=== PATIENT | female | born 1975 | race Caucasian/White ===

== ENCOUNTER 2022-07-16 14:05 | Emergency (ER) | payer OTHER ==
[~2022-07-16] VITALS: Ht 153 cm; Wt 68.2 kg
[~2022-07-16 14:05] MED LIST: ALBU8.5H3 IH; ALPR-709 PO; CARI-493 PO; DIVA-111 PO; PARO-38 PO; ZOLP10TA8 PO
[2022-07-16] MEDS ORDERED: ACETAMINOPHEN 500 MG TABLET PO ONE (15:00)
[2022-07-16 15:04] LABS: BASOPHILS % (AUTO) 0.1 % (0.0-2.0); EOSINOPHILS % (AUTO) 4.5 % (1.0-6.0); HEMOGLOBIN 9.8 g/dL (12.0-16.0); LYMPHOCYTES # (AUTO) 3.4 K/uL (1.0-4.8); LYMPHOCYTES % (AUTO) 47.2 % (22.0-44.0); MEAN CORPUSCULAR HEMOGLOBIN 20.5 pg (26.0-34.0); MEAN CORPUSCULAR HGB CONC 30.7 G/dL (31.0-37.0); MEAN CORPUSCULAR VOLUME 67 fL (80-100); MONOCYTES # (AUTO) 0.4 K/uL (0.1-1.0); MONOCYTES % (AUTO) 5.8 % (2.0-9.0); NEUTROPHILS % (AUTO) 42.4 % (40.0-70.0); PLATELET COUNT (AUTO) 429 K/uL (150-450); RED CELL DISTRIBUTION WIDTH 18.1 % (11.5-14.5)
[2022-07-16] MEDS ORDERED: HydrOXYzine PAMOATE 25 MG CAPSULE PO ONE (15:15)
[2022-07-16 15:23] LABS: ANION GAP 9 mmol/L (8-16); CALCIUM, TOTAL 8.7 mg/dL (8.8-10.5); CARBON DIOXIDE 26 mmol/L (22-29); CHLORIDE 104 mmol/L (98-107); GLOMERULAR FILTR. RATE CALC > 60 mL/min (>60); GLUCOSE,RANDOM 124 mg/dL (70-110); POTASSIUM 3.6 mmol/L (3.5-5.1); SODIUM SERUM 139 mmol/L (136-145); UREA NITROGEN, BLOOD 16 mg/dL (7-18)
[2022-07-16 15:27] LABS: ALANINE AMINOTRANSFERASE 30 U/L (12-78); ALBUMIN 3.6 g/dL (3.4-5.0); ALKALINE PHOSPHATASE 143 U/L (46-116); ASPARTATE AMINOTRANSFERASE 26 U/L (15-37); BILIRUBIN,TOTAL 0.2 mg/dL (0.1-1.0); LIPASE 69 U/L (73-393); TOTAL PROTEIN, SERUM 7.6 g/dL (6.4-8.2)
[2022-07-16] MEDS ORDERED: DOCUSATE SODIUM 100 MG CAPSULE PO ONE (15:45)
[2022-07-16 15:53] LABS: APPEARANCE,URINE CLEAR (CLEAR); BILIRUBIN,URINE NEGATIVE (NEGATIVE); GLUCOSE, URINE (UA) NEGATIVE (NEGATIVE); KETONES,URINE NEGATIVE (NEGATIVE); LEUKOCYTE ESTERASE ,URINE TRACE (NEGATIVE); NITRATE,URINE NEGATIVE (NEGATIVE); OCCULT BLOOD,URINE NEGATIVE (NEGATIVE); PROTEIN,URINE NEGATIVE (NEGATIVE); SPECIFIC GRAVITIY, URINE 1.027 (1.003-1.030); UROBILINOGEN,URINE <=1.0 mg/dL (<=1.0)
[2022-07-16 16:00] VITALS: BP 116/84
[2022-07-16 16:31] LABS: BACTERIA,URINE None Seen /HPF (None Seen); RBC,URINE None Seen /HPF (0-2); WBC,URINE 0-2 /HPF (0-5)
[2022-07-16] MEDS ORDERED: DOCU-385 PO (16:34)
== END 2022-07-16 16:57 | disposition home or self-care (01) ==
LOC: EMS 14:05
DX: K59.00 Constipation, unspecified (principal); J45.909 Unspecified asthma, uncomplicated; Z98.890 Other specified postprocedural states; Z91.040 Latex allergy status; Z91.018 Allergy to other foods
CPT/HCPCS: 80053; 81001; 83690; 84703; 85025; 99284

== ENCOUNTER 2022-11-23 16:58 | Emergency (ER) | payer OTHER ==
[~2022-11-23] VITALS: Ht 152.4 cm; Wt 63.6 kg
[~2022-11-23 16:58] MED LIST changes: +DOCU-385 PO; +ZOLP-162 PO; -ZOLP10TA8 PO
[2022-11-23 17:02] VITALS: BP 107/74; PULSE 105; RESP 18; TEMP 99.4
[2022-11-23 18:45] LABS: COVID AG,FIA SOURCE NASAL SWAB
[2022-11-23] MEDS ORDERED: ACETAMINOPHEN 500 MG TABLET PO ONE (19:00)
[2022-11-23] MEDS ORDERED: IBUPROFEN 600 MG TABLET PO ONE (19:00)
[2022-11-23 19:13] LABS: INFLUENZA TYPE A NEGATIVE FOR TYPE A (NEGATIVE); INFLUENZA TYPE B NEGATIVE FOR TYPE B (NEGATIVE)
[2022-11-23 19:30] LABS: SARS-COV2 (COVID) ANTIGEN,FIA Positive (Negative)
== END 2022-11-23 20:37 | disposition left against medical advice (07) ==
LOC: EMS 17:00
DX: U07.1 COVID-19 (principal); J45.909 Unspecified asthma, uncomplicated; M79.644 Pain in right finger(s); Z98.51 Tubal ligation status; Z98.890 Other specified postprocedural states; Z91.040 Latex allergy status; Z91.018 Allergy to other foods
CPT/HCPCS: 87804; 99284; 73140-TC; Z7502

== ENCOUNTER 2023-06-28 13:00 | Emergency (ER) | payer OTHER ==
[~2023-06-28] VITALS: Ht 152.4 cm; Wt 77.3 kg
[2023-06-28 13:01] VITALS: TEMP 98.3
[2023-06-28 15:29] VITALS: BP 136/88; PULSE 94; RESP 18
[2023-06-28 15:38] LABS: APPEARANCE,URINE HAZY (CLEAR); BILIRUBIN,URINE NEGATIVE (NEGATIVE); COLOR,URINE YELLOW (YELLOW); GLUCOSE, URINE (UA) NEGATIVE (NEGATIVE); KETONES,URINE NEGATIVE (NEGATIVE); LEUKOCYTE ESTERASE ,URINE LARGE (NEGATIVE); NITRATE,URINE NEGATIVE (NEGATIVE); OCCULT BLOOD,URINE MODERATE (NEGATIVE); PROTEIN,URINE 100-200,SEE CONFIRM mg/dL (NEGATIVE); SPECIFIC GRAVITIY, URINE 1.024 (1.003-1.030)
[2023-06-28 16:01] LABS: SULFOSALICYLIC ACID,URINE 2+ (Negative); WBC,URINE 26-50 /HPF (0-5)
[2023-06-28 16:02] LABS: BACTERIA,URINE Few /HPF (None Seen); SQUAMOUS EPITHELIAL CELL,UR Moderate /LPF (None Seen)
[2023-06-28] MEDS ORDERED: PHEN-674 PO (17:33)
[2023-06-28] MEDS ORDERED: SULF-261 PO (17:33)
== END 2023-06-28 17:41 | disposition home or self-care (01) ==
LOC: EMS 13:43
DX: N39.0 Urinary tract infection, site not specified (principal); J45.909 Unspecified asthma, uncomplicated; Z98.51 Tubal ligation status; Z98.890 Other specified postprocedural states; Z91.040 Latex allergy status; Z91.018 Allergy to other foods
CPT/HCPCS: 81001; 81002; 84703; 87086; 87186; 99283

== ENCOUNTER 2023-07-24 07:18 | Emergency (ER) | payer OTHER ==
[~2023-07-24] VITALS: Ht 157.5 cm; Wt 74.1 kg
[~2023-07-24 07:18] MED LIST changes: -ALBU8.5H3 IH; -ALPR-709 PO; -CARI-493 PO; -DIVA-111 PO; -DOCU-385 PO; -PARO-38 PO; +PHEN-674 PO; +SULF-261 PO; -ZOLP-162 PO
[2023-07-24 07:24] VITALS: TEMP 98.7
[2023-07-24] MEDS: IBUPROFEN 600 MG TABLET PO ONE (09:29)
[2023-07-24] MEDS: METHOCARBAMOL 500 MG TABLET PO ONE (09:30)
[2023-07-24] MEDS ORDERED: IBUP-1492 PO (09:57)
[2023-07-24] MEDS ORDERED: METH-659 PO (09:57)
[2023-07-24 10:10] VITALS: BP 136/82; PULSE 84; RESP 18
== END 2023-07-24 10:22 | disposition home or self-care (01) ==
LOC: EMS 07:18
DX: S13.4XXA Sprain of ligaments of cervical spine, initial encounter (principal); J45.909 Unspecified asthma, uncomplicated; Z98.51 Tubal ligation status; Z91.040 Latex allergy status; Z91.018 Allergy to other foods; V89.2XXA Person injured in unspecified motor-vehicle accident, traffic, initial encounter; Y92.89 Other specified places as the place of occurrence of the external cause; Y99.8 Other external cause status
CPT/HCPCS: 99283

== ENCOUNTER 2023-08-31 16:22 | Emergency (ER) | payer OTHER ==
[~2023-08-31] VITALS: Ht 165.1 cm; Wt 70.4 kg
[~2023-08-31 16:22] MED LIST changes: +IBUP-1492 PO; +METH-659 PO; -PHEN-674 PO; -SULF-261 PO
[2023-08-31 16:29] VITALS: BP 139/77; PULSE 98; RESP 18; TEMP 100.2
[2023-08-31] MEDS ORDERED: ONDANSETRON HCL 4 MG/2 ML VIAL IVP ONE (16:45)
[2023-08-31] MEDS ORDERED: ACETAMINOPHEN 1000 MG/ISO-OSM 100 ML IV ONE (16:45)
[2023-08-31] MEDS ORDERED: SODIUM CHLORIDE 0.9% 1,000 ML IV ONE (16:45)
[2023-08-31 17:08] LABS: BASOPHILS % (AUTO) 0.2 % (0.0-2.0); EOSINOPHILS % (AUTO) 1.2 % (1.0-6.0); HEMATOCRIT 33.5 % (36-46); HEMOGLOBIN 10.3 g/dL (12.0-16.0); LYMPHOCYTES # (AUTO) 2.7 K/uL (1.0-4.8); LYMPHOCYTES % (AUTO) 22.5 % (22.0-44.0); MEAN CORPUSCULAR HGB CONC 30.8 G/dL (31.0-37.0); MEAN CORPUSCULAR VOLUME 68 fL (80-100); MONOCYTES # (AUTO) 0.8 K/uL (0.1-1.0); MONOCYTES % (AUTO) 6.6 % (2.0-9.0); NEUTROPHILS # (AUTO) 8.3 K/uL (1.8-7.7); NEUTROPHILS % (AUTO) 69.5 % (40.0-70.0); PLATELET COUNT (AUTO) 456 K/uL (150-450); RED BLOOD CELL COUNT(AUTO) 4.91 MIL/uL (4.00-5.20); RED CELL DISTRIBUTION WIDTH 18.8 % (11.5-14.5)
[2023-08-31 17:19] LABS: ANION GAP 10 mmol/L (8-16); CALCIUM, TOTAL 9.3 mg/dL (8.8-10.5); CARBON DIOXIDE 28 mmol/L (22-29); CHLORIDE 98 mmol/L (98-107); CREATININE 0.66 mg/dL (0.60-1.30); GLOMERULAR FILTR. RATE CALC > 60 mL/min (>60); GLUCOSE,RANDOM 161 mg/dL (70-110); POTASSIUM 3.5 mmol/L (3.5-5.1); SODIUM SERUM 136 mmol/L (136-145); UREA NITROGEN, BLOOD 11 mg/dL (7-18)
[2023-08-31 17:27] LABS: LACTIC ACID 1.3 mmol/L (0.4-2.0)
[2023-08-31 17:30] LABS: ALANINE AMINOTRANSFERASE 97 U/L (12-78); ALBUMIN 3.5 g/dL (3.4-5.0); ALKALINE PHOSPHATASE 264 U/L (46-116); ASPARTATE AMINOTRANSFERASE 44 U/L (15-37); BILIRUBIN,TOTAL 0.5 mg/dL (0.1-1.0); HCG,QUANTITATIVE 1 mIU/mL (0-6); LIPASE 16 U/L (16-77); TOTAL PROTEIN, SERUM 8.6 g/dL (6.4-8.2)
[2023-08-31 17:58] LABS: RBC MORPHOLOGY COMMENT ABNORMAL RBC MORPH
== END 2023-08-31 19:47 | disposition left against medical advice (07) ==
LOC: EMS 16:26
DX: R10.30 Lower abdominal pain, unspecified (principal); R11.2 Nausea with vomiting, unspecified; Z53.21 Procedure and treatment not carried out due to patient leaving prior to being seen by health care provider
CPT/HCPCS: 80053; 83605; 83690; 84145; 84702; 85025; 87040; 99281

== ENCOUNTER 2024-01-27 09:10 | Emergency (ER) | payer OTHER ==
[~2024-01-27] VITALS: Ht 160 cm; Wt 86.4 kg
[2024-01-27 09:14] VITALS: BP 128/84; PULSE 74; RESP 18; TEMP 98.2; O2SAT 99
== END 2024-01-27 13:24 | disposition left against medical advice (07) ==
LOC: EMS 09:10
DX: R07.9 Chest pain, unspecified (principal); Z53.21 Procedure and treatment not carried out due to patient leaving prior to being seen by health care provider

== ENCOUNTER 2024-03-02 04:47 | Emergency (ER) | payer OTHER ==
[~2024-03-02] VITALS: Ht 157.5 cm; Wt 81.8 kg
[2024-03-02 05:12] VITALS: BP 128/85; PULSE 84; RESP 18; TEMP 98; O2SAT 97
[2024-03-02 06:59] LABS: COVID AG,FIA SOURCE NASAL SWAB
[2024-03-02 07:29] LABS: INFLUENZA TYPE A NEGATIVE FOR TYPE A (NEGATIVE); INFLUENZA TYPE B NEGATIVE FOR TYPE B (NEGATIVE); SARS-COV2 (COVID) ANTIGEN,FIA Negative (Negative)
[2024-03-02 08:01] LABS: INFLUENZA A-RTPCR,COMBO NEGATIVE (NEGATIVE); INFLUENZA B-RTPCR,COMBO NEGATIVE (NEGATIVE); RESPIRATORY SYNCYTIAL VRS-PCR NEGATIVE (NEGATIVE); SARS COVID19 RTPCR, COMBO NEGATIVE (NEGATIVE)
[2024-03-02] MEDS ORDERED: AMOX500C2 PO (08:36)
[2024-03-02] MEDS ORDERED: OSEL75CA45 PO (08:37)
== END 2024-03-02 09:08 | disposition home or self-care (01) ==
LOC: EMS 04:47
DX: H66.91 Otitis media, unspecified, right ear (principal); R07.0 Pain in throat; R09.82 Postnasal drip; J45.909 Unspecified asthma, uncomplicated; Z85.41 Personal history of malignant neoplasm of cervix uteri; Z98.51 Tubal ligation status; Z20.822 Contact with and (suspected) exposure to COVID-19
CPT/HCPCS: 99283; 0241U; 87804; 87426

== ENCOUNTER 2024-04-18 15:46 | Emergency (ER) | payer OTHER ==
[~2024-04-18] VITALS: Ht 157.5 cm; Wt 77.3 kg
[~2024-04-18 15:46] MED LIST changes: +AMOX500C2 PO; +OSEL75CA45 PO
[2024-04-18 15:57] VITALS: BP 116/76; PULSE 78; RESP 16; TEMP 98.4; O2SAT 96
== END 2024-04-18 17:38 | disposition left against medical advice (07) ==
LOC: EMS 15:46
DX: M54.6 Pain in thoracic spine (principal); Z53.21 Procedure and treatment not carried out due to patient leaving prior to being seen by health care provider

== ENCOUNTER 2024-05-07 16:40 | Emergency (ER) | payer OTHER ==
[~2024-05-07] VITALS: Ht 157.5 cm; Wt 77.3 kg
[2024-05-07 16:56] VITALS: BP 126/87; PULSE 90; RESP 18; TEMP 98.2; O2SAT 99
[2024-05-07 17:42] LABS: BASOPHILS % (AUTO) 0.2 % (0.0-2.0); EOSINOPHILS % (AUTO) 3.5 % (1.0-6.0); HEMATOCRIT 34.4 % (36-46); HEMOGLOBIN 10.4 g/dL (12.0-16.0); LYMPHOCYTES % (AUTO) 36.2 % (22.0-44.0); MEAN CORPUSCULAR HEMOGLOBIN 21.2 pg (26.0-34.0); MEAN CORPUSCULAR HGB CONC 30.2 G/dL (31.0-37.0); MEAN CORPUSCULAR VOLUME 70 fL (80-100); MONOCYTES # (AUTO) 0.5 K/uL (0.1-1.0); MONOCYTES % (AUTO) 5.5 % (2.0-9.0); NEUTROPHILS # (AUTO) 4.6 K/uL (1.8-7.7); NEUTROPHILS % (AUTO) 54.6 % (40.0-70.0); PLATELET COUNT (AUTO) 405 K/uL (150-450); RED BLOOD CELL COUNT(AUTO) 4.91 MIL/uL (4.00-5.20); WHITE BLOOD COUNT (AUTO) 8.4 K/uL (4.5-11.0)
[2024-05-07 17:57] LABS: ANION GAP 7 mmol/L (8-16); CALCIUM, TOTAL 8.7 mg/dL (8.8-10.5); CARBON DIOXIDE 29 mmol/L (22-29); CHLORIDE 104 mmol/L (98-107); CREATININE 0.68 mg/dL (0.60-1.30); GLOMERULAR FILTR. RATE CALC > 60 mL/min (>60); GLUCOSE,RANDOM 121 mg/dL (70-110); POTASSIUM 3.9 mmol/L (3.5-5.1); SODIUM SERUM 140 mmol/L (136-145); UREA NITROGEN, BLOOD 18 mg/dL (7-18)
[2024-05-07 18:01] LABS: RBC MORPHOLOGY COMMENT ABNORMAL RBC MORPH
[2024-05-07 18:04] LABS: TROPONIN I-HIGH SENSITIVITY 4 ng/L (<51)
== END 2024-05-07 18:57 | disposition left against medical advice (07) ==
LOC: EMS 16:40
DX: R42 Dizziness and giddiness (principal); Z53.21 Procedure and treatment not carried out due to patient leaving prior to being seen by health care provider
CPT/HCPCS: 71045; 80048; 84484; 84703; 85025; 93005; 36415-L1; 36415-TC

== ENCOUNTER 2024-06-23 13:26 | Emergency (ER) | payer OTHER ==
[~2024-06-23] VITALS: Ht 157.5 cm; Wt 77.3 kg
[2024-06-23 13:33] VITALS: TEMP 97.7
[2024-06-23] MEDS: KETOROLAC TROMETHAMINE 30 MG/ML VIAL IM ONE (17:37)
[2024-06-23] MEDS: LIDOCAINE 5% TRANSDERMAL PATCH TD ONE (17:39)
[2024-06-23] MEDS: BACLOFEN 10 MG TABLET PO ONE (17:39)
[2024-06-23] MEDS ORDERED: IBUP-1492 PO (18:57)
[2024-06-23] MEDS ORDERED: BACL10TA PO (18:57)
[2024-06-23 19:00] VITALS: BP 125/69; PULSE 66; RESP 16; O2SAT 97
== END 2024-06-23 19:18 | disposition home or self-care (01) ==
LOC: EMS 13:28
DX: G89.29 Other chronic pain (principal); M54.50 Low back pain, unspecified; J45.909 Unspecified asthma, uncomplicated; Z85.41 Personal history of malignant neoplasm of cervix uteri; Z59.00 Homelessness unspecified
CPT/HCPCS: 99283; 96372; J1885

== ENCOUNTER 2024-09-06 12:36 | Emergency (ER) | payer OTHER ==
[~2024-09-06] VITALS: Ht 162.6 cm; Wt 84.1 kg
[~2024-09-06 12:36] MED LIST changes: -AMOX500C2 PO; +BACL10TA PO; -METH-659 PO; -OSEL75CA45 PO
[2024-09-06 12:59] VITALS: TEMP 98.9
[2024-09-06 13:24] VITALS: BP 117/76; PULSE 98; RESP 18; O2SAT 98
[2024-09-06] MEDS ORDERED: ACET-66 PO (14:44)
[2024-09-06] MEDS ORDERED: METH-812 PO (14:44)
[2024-09-06] MEDS: methocarbamoL 500 MG TABLET PO ONE (14:47)
[2024-09-06] MEDS: ACETAMINOPHEN 500 MG TABLET PO ONE (14:48)
== END 2024-09-06 14:56 | disposition home or self-care (01) ==
LOC: EMS 12:36
DX: S00.93XA Contusion of unspecified part of head, initial encounter (principal); G89.29 Other chronic pain; M54.50 Low back pain, unspecified; J45.909 Unspecified asthma, uncomplicated; Z91.040 Latex allergy status; Z85.41 Personal history of malignant neoplasm of cervix uteri; Z98.51 Tubal ligation status; W50.0XXA Accidental hit or strike by another person, initial encounter; Y93.89 Activity, other specified; Y92.89 Other specified places as the place of occurrence of the external cause; Y99.8 Other external cause status
CPT/HCPCS: 99283

== ENCOUNTER 2024-09-17 19:31 | Emergency (ER) | payer OTHER ==
[~2024-09-17] VITALS: Ht 157.5 cm; Wt 72.7 kg
[~2024-09-17 19:31] MED LIST changes: +ACET-66 PO; -BACL10TA PO; -IBUP-1492 PO; +METH-812 PO
[2024-09-17 19:57] VITALS: BP 130/87; PULSE 103; RESP 18; TEMP 98.2; O2SAT 99
[2024-09-17] MEDS ORDERED: GUAIFDM PO (20:31)
== END 2024-09-17 20:40 | disposition home or self-care (01) ==
LOC: EMS 19:31
DX: J06.9 Acute upper respiratory infection, unspecified (principal); J45.909 Unspecified asthma, uncomplicated; Z85.41 Personal history of malignant neoplasm of cervix uteri; Z98.51 Tubal ligation status; Z79.899 Other long term (current) drug therapy; Z91.040 Latex allergy status; Z91.018 Allergy to other foods
CPT/HCPCS: 99282; Z7502

== ENCOUNTER 2024-10-13 09:32 | Emergency (ER) | payer OTHER ==
[~2024-10-13] VITALS: Ht 157.5 cm; Wt 77.3 kg
[~2024-10-13 09:32] MED LIST changes: +GUAIFDM PO
[2024-10-13 09:38] VITALS: BP 139/95; PULSE 92; RESP 16; TEMP 98.1; O2SAT 100
[2024-10-13] MEDS: KETOROLAC TROMETHAMINE 60 MG/2 ML VIAL IM ONE (10:42)
[2024-10-13] MEDS: LIDOCAINE 5% TRANSDERMAL PATCH TD ONE (10:43)
[2024-10-13] MEDS ORDERED: IBUP-1492 PO (12:00)
[2024-10-13] MEDS ORDERED: METH-659 PO (12:00)
== END 2024-10-13 12:21 | disposition home or self-care (01) ==
LOC: EMS 09:41
DX: S39.012A Strain of muscle, fascia and tendon of lower back, initial encounter (principal); J45.909 Unspecified asthma, uncomplicated; Z85.41 Personal history of malignant neoplasm of cervix uteri; Z98.51 Tubal ligation status; Z91.040 Latex allergy status; W19.XXXA Unspecified fall, initial encounter; Y93.89 Activity, other specified; Y92.89 Other specified places as the place of occurrence of the external cause; Y99.8 Other external cause status
CPT/HCPCS: 99283; 72100; 96372; J1885

== ENCOUNTER 2024-10-27 07:23 | Emergency (ER) | payer OTHER ==
[~2024-10-27] VITALS: Ht 157.5 cm; Wt 77.3 kg
[~2024-10-27 07:23] MED LIST changes: +IBUP-1492 PO; +METH-659 PO
[2024-10-27 08:39] VITALS: BP 121/87; PULSE 69; RESP 16; TEMP 97.7; O2SAT 98
== END 2024-10-27 08:57 | disposition home or self-care (01) ==
LOC: EMS 07:23
DX: Z11.1 Encounter for screening for respiratory tuberculosis (principal); J45.909 Unspecified asthma, uncomplicated; Z85.41 Personal history of malignant neoplasm of cervix uteri; Z98.51 Tubal ligation status; Z79.899 Other long term (current) drug therapy; Z91.040 Latex allergy status; Z91.018 Allergy to other foods
CPT/HCPCS: 71046; 99283

== ENCOUNTER 2024-11-10 10:04 | Emergency (ER) | payer OTHER ==
[~2024-11-10] VITALS: Ht 152.4 cm; Wt 77.3 kg
[2024-11-10 10:10] VITALS: TEMP 98.4
[2024-11-10 10:21] VITALS: BP 123/75; PULSE 70; RESP 16; O2SAT 96
[2024-11-10 10:36] LABS: PLATELET COUNT (AUTO) 320 K/uL (150-450); RED BLOOD CELL COUNT(AUTO) 4.79 MIL/uL (4.00-5.20); RED CELL DISTRIBUTION WIDTH 17.6 % (11.5-14.5); WHITE BLOOD COUNT (AUTO) 5.6 K/uL (4.5-11.0)
[2024-11-10 10:39] LABS: RBC MORPHOLOGY COMMENT ABNORMAL RBC MORPH
[2024-11-10 10:42] LABS: CALCIUM, TOTAL 8.5 mg/dL (8.8-10.5); CREATININE 0.67 mg/dL (0.60-1.30); GLOMERULAR FILTR. RATE CALC > 60 mL/min (>60); GLUCOSE,RANDOM 114 mg/dL (70-110); SODIUM SERUM 139 mmol/L (136-145); UREA NITROGEN, BLOOD 16 mg/dL (7-18)
[2024-11-10 10:57] LABS: CREATINE KINASE, TOTAL ONLY 95 U/L (26-192)
[2024-11-10 11:06] LABS: APPEARANCE,URINE CLEAR (CLEAR); GLUCOSE, URINE (UA) NEGATIVE (NEGATIVE); LEUKOCYTE ESTERASE ,URINE LARGE (NEGATIVE); NITRATE,URINE NEGATIVE (NEGATIVE); OCCULT BLOOD,URINE NEGATIVE (NEGATIVE); SPECIFIC GRAVITIY, URINE 1.022 (1.003-1.030)
[2024-11-10 11:14] LABS: SQUAMOUS EPITHELIAL CELL,UR Few /LPF (None Seen)
[2024-11-10 11:18] LABS: TROPONIN I-HIGH SENSITIVITY Less Than 4 ng/L (<51)
[2024-11-10 11:56] LABS: COVID AG,FIA SOURCE NASAL SWAB
[2024-11-10] MEDS: CEPHALEXIN MONOHYDRATE 500 MG CAPSULE PO ONE (12:02)
[2024-11-10] MEDS: KETOROLAC TROMETHAMINE 60 MG/2 ML VIAL IM ONE (12:02)
[2024-11-10 12:26] LABS: SARS-COV2 (COVID) ANTIGEN,FIA Negative (Negative)
[2024-11-10] MEDS ORDERED: CEPH-558 PO (12:51)
== END 2024-11-10 13:00 | disposition home or self-care (01) ==
LOC: EMS 10:08
DX: M79.18 Myalgia, other site (principal); N39.0 Urinary tract infection, site not specified; J45.909 Unspecified asthma, uncomplicated; Z85.41 Personal history of malignant neoplasm of cervix uteri; Z98.51 Tubal ligation status; Z79.899 Other long term (current) drug therapy; Z91.040 Latex allergy status; Z91.018 Allergy to other foods; Z20.822 Contact with and (suspected) exposure to COVID-19
CPT/HCPCS: 99285; 71045; 87426; 80048; 81001; 82550; 83880; 84484; 85025; 85610; 85730; 87086; 36415; 93005; 96372; J1885

== ENCOUNTER 2024-11-29 19:29 | Emergency (ER) | payer OTHER ==
[~2024-11-29] VITALS: Ht 152.4 cm; Wt 77.3 kg
[~2024-11-29 19:29] MED LIST changes: +CEPH-558 PO
[2024-11-29 19:45] VITALS: BP 126/90; PULSE 73; RESP 12; TEMP 98.1; O2SAT 99
== END 2024-11-29 21:30 | disposition left against medical advice (07) ==
LOC: EMS 19:29
DX: M54.50 Low back pain, unspecified (principal); Z53.21 Procedure and treatment not carried out due to patient leaving prior to being seen by health care provider

== ENCOUNTER 2024-12-04 10:00 | Emergency (ER) | payer OTHER ==
[~2024-12-04] VITALS: Ht 152.4 cm; Wt 77.3 kg
[2024-12-04 10:03] VITALS: TEMP 98.2
[2024-12-04 10:30] VITALS: BP 124/78; PULSE 85; RESP 16; O2SAT 96
[2024-12-04] MEDS: SODIUM CHLORIDE 0.9% 500 ML IRRIG SOLUTION BOTTLE IRRIG ONE (11:35)
[2024-12-04] MEDS: BACITRACIN 0.9 GM PACKET OINTMENT TP ONE (11:35)
== END 2024-12-04 11:45 | disposition home or self-care (01) ==
LOC: EMS 10:02
DX: S70.311A Abrasion, right thigh, initial encounter (principal); J45.909 Unspecified asthma, uncomplicated; S80.811A Abrasion, right lower leg, initial encounter; Z98.51 Tubal ligation status; Z85.41 Personal history of malignant neoplasm of cervix uteri; Z91.040 Latex allergy status; W01.0XXA Fall on same level from slipping, tripping and stumbling without subsequent striking against object, initial encounter; Y93.89 Activity, other specified; Y92.89 Other specified places as the place of occurrence of the external cause; Y99.8 Other external cause status
CPT/HCPCS: 99282; Z7502; Z7610

== ENCOUNTER 2025-01-13 13:46 | Emergency (ER) | payer OTHER ==
[~2025-01-13] VITALS: Ht 152.4 cm; Wt 77.3 kg
[2025-01-13 14:08] VITALS: BP 113/85; PULSE 89; RESP 18; TEMP 98.1; O2SAT 98
[2025-01-13 16:05] LABS: COVID AG,FIA SOURCE NASAL SWAB; SARS-COV2 (COVID) ANTIGEN,FIA Negative (Negative)
[2025-01-13 16:20] LABS: INFLUENZA TYPE A NEGATIVE FOR TYPE A (NEGATIVE); INFLUENZA TYPE B NEGATIVE FOR TYPE B (NEGATIVE)
== END 2025-01-13 17:11 | disposition left against medical advice (07) ==
LOC: EMS 13:47
DX: R19.7 Diarrhea, unspecified (principal); R52 Pain, unspecified; R05.9 Cough, unspecified; Z20.822 Contact with and (suspected) exposure to COVID-19; Z53.21 Procedure and treatment not carried out due to patient leaving prior to being seen by health care provider
CPT/HCPCS: 71045; 87804; 99281

== ENCOUNTER 2025-01-13 19:38 | Emergency (ER) | payer OTHER ==
[~2025-01-13] VITALS: Ht 152.4 cm; Wt 77.3 kg
[2025-01-13 19:58] VITALS: BP 116/79; PULSE 98; RESP 17; TEMP 98.1; O2SAT 99
[2025-01-13] MEDS: ACETAMINOPHEN 325 MG TABLET PO ONE (23:53)
== END 2025-01-14 | disposition home or self-care (01) ==
LOC: EMS 19:38
DX: K52.9 Noninfective gastroenteritis and colitis, unspecified (principal); R11.2 Nausea with vomiting, unspecified; J45.909 Unspecified asthma, uncomplicated; Z85.41 Personal history of malignant neoplasm of cervix uteri; Z91.040 Latex allergy status; Z98.51 Tubal ligation status; Z91.018 Allergy to other foods
CPT/HCPCS: 99282; Z7502; Z7610

== ENCOUNTER 2025-01-20 11:53 | Emergency (ER) | payer OTHER ==
[~2025-01-20] VITALS: Ht 152.4 cm; Wt 77.3 kg
[2025-01-20 11:58] VITALS: O2SAT 97
[2025-01-20] MEDS: ACETAMINOPHEN 500 MG TABLET PO ONE (13:37)
[2025-01-20] MEDS: KETOROLAC TROMETHAMINE 60 MG/2 ML VIAL IM ONE (14:12)
[2025-01-20] MEDS ORDERED: IBUP-1492 PO (16:14)
[2025-01-20 16:35] VITALS: BP 122/79; PULSE 72; RESP 16; TEMP 98.4
== END 2025-01-20 16:37 | disposition home or self-care (01) ==
LOC: EMS 11:55
DX: S46.912A Strain of unspecified muscle, fascia and tendon at shoulder and upper arm level, left arm, initial encounter (principal); J45.909 Unspecified asthma, uncomplicated; Z85.41 Personal history of malignant neoplasm of cervix uteri; Z91.040 Latex allergy status; Z98.51 Tubal ligation status; V43.52XA Car driver injured in collision with other type car in traffic accident, initial encounter; Y93.89 Activity, other specified; Y92.411 Interstate highway as the place of occurrence of the external cause; Y99.8 Other external cause status
CPT/HCPCS: 99283; 73030; 96372; J1885

== ENCOUNTER 2025-03-13 15:16 | Emergency (ER) | payer OTHER ==
[~2025-03-13] VITALS: Ht 152.4 cm; Wt 77.3 kg
[~2025-03-13 15:16] MED LIST changes: -ACET-66 PO; -CEPH-558 PO; -GUAIFDM PO; -METH-659 PO; -METH-812 PO
[2025-03-13 15:19] VITALS: BP 106/89; PULSE 88; RESP 18; TEMP 97.9; O2SAT 99
[2025-03-13] MEDS ORDERED: LIDO-57 TP (17:07)
[2025-03-13] MEDS ORDERED: ACET-3385 PO (17:07)
[2025-03-13] MEDS ORDERED: IBUP-1492 PO (17:07)
[2025-03-13] MEDS: ACETAMINOPHEN 500 MG TABLET PO ONE (17:14)
[2025-03-13] MEDS: KETOROLAC TROMETHAMINE 30 MG/ML VIAL IM ONE (17:14)
[2025-03-13] MEDS: LIDOCAINE 5% TRANSDERMAL PATCH TD ONE (17:14)
== END 2025-03-13 17:15 | disposition home or self-care (01) ==
LOC: EMS 15:16
DX: S16.1XXA Strain of muscle, fascia and tendon at neck level, initial encounter (principal); F41.9 Anxiety disorder, unspecified; J45.909 Unspecified asthma, uncomplicated; Z98.51 Tubal ligation status; Z91.040 Latex allergy status; Z85.41 Personal history of malignant neoplasm of cervix uteri; Z79.899 Other long term (current) drug therapy; Z98.890 Other specified postprocedural states; X58.XXXA Exposure to other specified factors, initial encounter; Y93.89 Activity, other specified; Y92.89 Other specified places as the place of occurrence of the external cause; Y99.8 Other external cause status
CPT/HCPCS: 99283; 96372; J1885